=== PATIENT | female | born 1965 | race Caucasian/White ===

== ENCOUNTER 2022-05-21 21:09 | Emergency (ER) | payer OTHER, SELFPAY ==
--- NOTE | ~2022-05-21 | CT_ITS ---
EXAMINATION: CT abdomen pelvis w con DATE: 05/21/2022 22:45 INDICATION: Left lower quadrant abdominal pain. TECHNIQUE: Computed tomography (CT) of the abdomen and pelvis was performed with 100 cc Omnipaque 300 intravenous contrast. The dose-length product was 1506.44 mGy-cm. COMPARISON: None. FINDINGS: Lung bases are unremarkable. Heart size normal. No significant pleural or pericardial effus ion. There are calcified granulomas in the spleen and right lower lung. Fatty infiltration of the robby er. Status post cholecystectomy. The pancreas, adrenal glands and kidneys are unremarkable. There is mild acute uncomplicated proximal sigmoid diverticulitis. Status post hysterectomy. No free air or fr ee fluid. Bladder is unremarkable. Moderate lumbar spondylosis. There is a small fat-containing umbil ical hernia. IMPRESSION: 1. Acute uncomplicated proximal sigmoid diverticulitis. Reviewed, dictated and finalized at location A.
[2022-05-21 21:10] VITALS: BP 133/83; PULSE 76; RESP 17; TEMP 36.3; O2SAT 100
--- NOTE | 2022-05-21 21:32 | ED.ABDPAIN ---
HPI - Abdominal Pain General Chief Complaint: Abdominal Pain Stated Complaint: abd pain Time Seen by Provider: 05/21/22 21:23 Source: patient History of Present Illness HPI narrative: Patient presents with abdominal pain. Symptom present for the past 24 hours thought initially it was gas however pain got progressively worse so she came to the ER for further evaluation. Her pain is primarily on her left lower quadrant achy, constant, and worse with walking around, radiates to her suprapubic area. Symptoms were associated with nausea. She reports some constipation over the past few days but like her bowel movements are normal today she denies any urinary symptoms or fevers. Related Data Home Medications Medication Instructions Recorded Confirmed ergocalciferol (vitamin D2) 1,250 1 cap PO WEEKLY 05/21/22 mcg (50,000 unit) capsule lisinopril 20 1 tablet PO DAILY 05/21/22 mg-hydrochlorothiazide 12.5 mg tablet lorazepam 0.5 mg tablet 0.5 mg PO 05/21/22 omeprazole 20 mg capsule,delayed 20 mg PO PRN 05/21/22 release Allergies Allergy/AdvReac Type Severity Reaction Status Date / Time levofloxacin [From Levaquin] Allergy Chest Pain Verified 05/21/22 23:27 Review of Systems Review of Systems: CONSTITUTIONAL: Denies fever, chills, or sweats. EYES: Denies visual changes, redness, or discharge. ENT: Denies rhinorrhea, congestion, sore throat, or otalgia. CARDIOVASCULAR: Denies chest pain, palpitations, or edema. RESPIRATORY: Denies cough or dyspnea. GASTROINTESTINAL: Denies vomiting, or diarrhea. GENITOURINARY: Denies dysuria or hematuria. SKIN: Denies rash or itching. MUSCULOSKELETAL: Denies back pain, joint pain, or myalgia. NEUROLOGIC: Denies headache, numbness, dizziness, or weakness. PSYCHIATRIC: Denies anxiety or depression. All systems reviewed & are unremarkable except as noted in HPI and below Course Reevaluation(s) Reevaluation #1: Patient resting comfortably results and plan reviewed with patient. Patient is comfortable outpatient plan. Date: 05/22/22 Time: 00:04 Vital Signs Vital signs: Vital Signs Temperature 36.3 C L 05/21/22 21:10 Pulse Rate 76 05/21/22 21:10 Respiratory Rate 17 05/21/22 21:10 Blood Pressure 133/83 05/21/22 21:10 Pulse Oximetry 100 05/21/22 21:10 Oxygen Delivery Room Air 05/21/22 21:10 Temperature 36.3 C L 05/21/22 21:10 Pulse Rate 81 05/21/22 23:27 Respiratory Rate 20 05/21/22 23:27 Blood Pressure 112/54 L 05/21/22 23:27 Pulse Oximetry 98 05/21/22 23:27 Oxygen Delivery Room Air 05/21/22 21:10 MDM - Abdominal Pain MDM Narrative Medical decision making narrative: H&P as above, vss, pt looks clinically well, exam left lower quadrant abdominal pain, labs clinically unremarkable, img concerning for diverticulitis, additional labs/img considered, symptomatic relief available as needed, on reevaluation pt continues to looks clinically well. Suspect diverticulitis, dns perforation, abscess, severe sepsis consider dehydration. plan to tx/monitor as op w/ pcm f/u findings/plan discussed with pt, pt agree/comfortable with plan, return precautions given Lab Data Result diagrams: 05/21/22 21:48 05/21/22 21:48 Labs: Lab Results 05/21/22 05/21/22 05/21/22 Range/Units 21:33 21:41 21:48 WBC 10.2 H (4.5-10.0) K/mm3 RBC 4.50 (4.2-5.4) M/mm3 Hgb 13.1 (12.0-15.0) g/dL Hct 39.8 (37.0-47.0) % MCV 88.4 (80-100) fl MCH 29.1 (26-34) pg MCHC 32.9 (32-36) g/dl RDW 12.3 (11.5-14.5) % Plt Count 329 (150-375) k/mm3 MPV 9.5 (7.4-10.4) fl Immature Gran % (Auto) 0.4 (0-0.5) % Neut % (Auto) 55.5 (45.5-73.1) % Lymph % (Auto) 27.9 (18.3-44.2) % [place] % (Auto) 12.5 H (2.6-8.5) % Eos % (Auto) 2.9 (0-4.4) % Baso % (Auto) 0.8 (0.2-1.2) % Lymph # (Auto) 2.84 (0.9-3.2) K/mm3 [place] # (Auto) 1.3 H (0.1-0.6) K/mm3 Eos # (Auto) 0.3 (0-0.3) K
[2022-05-21 21:39] LABS: Glucose Point of Care 119 mg/dl (65-105)
[2022-05-21 21:47] LABS: Appearance Urine Clear (Clear); Bilirubin Urine Negative (Negative); Blood Urine Negative (Negative); Glucose Urine UA Negative (Negative); Ketones Urine Negative (Negative); Leukocyte Esterase Ur 2+ LEU/UL (Negative); Nitrate Urine Negative (Negative); Protein Urine Negative (Negative); Specific Grav Ur <= 1.005 (1.001-1.035); Urobilinogen Urine 0.2 mg/dL (<2.0); pH Urine 6.5 (5.0-9.0)
[2022-05-21 21:51] LABS: Bacteria Urine Trace /hpf; Mucus Urine Rare /lpf; RBC Urine 0-2 /hpf (0-2); Squamous Epithelial Cell Urine Rare /hpf (Few)
[2022-05-21 21:52] LABS: Add Urine Microscopic? YES; Color Urine Light Yellow (Yellow)
[2022-05-21 21:54] VITALS: PULSE 84; RESP 21; O2SAT 97
[2022-05-21 22:00] VITALS: PULSE 84; RESP 22; O2SAT 98
[2022-05-21 22:00] LABS: Basophils Absolute Auto 0.1 K/mm3 (0.0-0.1); Basophils Percent Auto 0.8 % (0.2-1.2); Eosinophils Absolute Auto 0.3 K/mm3 (0-0.3); Eosinophils Percent Auto 2.9 % (0-4.4); Hematocrit 39.8 % (37.0-47.0); Hemoglobin 13.1 g/dL (12.0-15.0); Immature Granulocyte Absolute 0.04 K/mm3 (0.00-0.031); Immature Granulocyte Percent A 0.4 % (0-0.5); Lymphocytes Absolute Auto 2.84 K/mm3 (0.9-3.2); Lymphocytes Percent Auto 27.9 % (18.3-44.2); Mean Corpuscular HGB Conc 32.9 g/dl (32-36); Mean Corpuscular Hemoglobin 29.1 pg (26-34); Mean Corpuscular Volume 88.4 fl (80-100); Mean Platelet Volume 9.5 fl (7.4-10.4); Monocytes Absolute Auto 1.3 K/mm3 (0.1-0.6); Monocytes Percent Auto 12.5 % (2.6-8.5); Neutrophils Absolute Auto 5.6 K/mm3 (1.3-6.7); Neutrophils Percent Auto 55.5 % (45.5-73.1); Platelet Count Result 329 k/mm3 (150-375); Red Cell Distribution Width 12.3 % (11.5-14.5); White Blood Count 10.2 K/mm3 (4.5-10.0)
[2022-05-21] MEDS: SODIUM CHLORIDE 0.9% IV 1,000 ML 999 ML IV CONT (22:02)
[2022-05-21 22:09] LABS: Alanine Aminotransferase 25 U/L (6-35); Albumin Level 4.6 g/dL (3.5-5.1); Alkaline Phosphatase 138 U/L (38-126); Anion Gap 5 mmol/L (8-16); Aspartate Amino Transferase 23 U/L (14-36); Bilirubin,Total 0.2 mg/dL (0.2-1.3); Blood Urea Nitrogen 13 mg/dL (7-17); Calcium 10.6 mg/dL (8.4-10.2); Carbon Dioxide 28 mmol/L (22-30); Chloride 101 mmol/L (98-107); Estimated CRCL calculation 108 ml/min; Estimated Glomerular Filt Rate > 60; Glucose 109 mg/dL (65-110); Lipase 81 U/L (23-300); Sodium 134 mmol/L (137-145)
[2022-05-21 22:15] VITALS: PULSE 75; RESP 18; O2SAT 98
[2022-05-21 22:52] VITALS: PULSE 74; RESP 14; O2SAT 99
[2022-05-21 23:27] VITALS: BP 112/54; PULSE 81; RESP 20; O2SAT 98
[2022-05-22] MEDS: AMOXICILLIN/CLAVULANATE K 875-125 MG TAB 1 TABLET PO (00:13)
== END 2022-05-22 00:22 | disposition home or self-care (01) ==
PROVIDERS: Emergency Provider Emergency Medicine; PCP Internal Medicine
DX: K57.32 Diverticulitis of large intestine without perforation or abscess without bleeding (principal)
CPT/HCPCS: 36415; 74177; 80053; 81001; 82948; 83690; 85025; 87086; 87088; 96360; 96361; 99284; A9270; J7030; Q9967

== ENCOUNTER 2025-09-24 11:53 | Emergency (ER) | payer OTHER, SELFPAY ==
--- OUTSIDE RECORDS SUMMARY | 2002-02-05 03:45 | XMS_ITS | Continuity of Care Document ---
Author Organization [facility] Address [address] [place] [address] Phone Care Team Providers Care Gym Manager Name Role Phone Yamil Marie DO Unavailable Unavailable Advance Directives Directive Yes / No Effective Date File Name No Information Encounters Encounter Description Practice Location Reason(s) For Visit Diagnoses Date Provider Providers Copied on Encounter [facility], [address], [place], [place], [id number], [place] tel:[phone] [facility] No Information Cynthia Ventura. [address] [facility], [place], [address], [place]. tel:[phone] Family History Family Member Type Diagnosis Age At Onset No Information Payers Payer name Insurance type Covered democrat ID Authoriza tion(s) No Information Social History Type Description Quantity Date Captured Comments Sex Female Smoking Status No Information Chief Complaint And Reason For Visit No Information Reason For Referral Reason For Referral No Information History Of Present Illness Encounter Date Complaint History Of Prese nt Illness No Information Functional Status Date Functional Assessmen t No Information Instructions Date Instruction Additional Infor mation No Information Assessments Type Assessment Date No Information Patient Care Teams Name Effective Dates (start - stop) Status Members No Information
--- OUTSIDE RECORDS SUMMARY | 2002-02-05 03:45 | XMS_ITS | Continuity of Care Document ---
Author Organization formerly [facility] Address [address] [place] [address] Phone Care Team Providers Care Natural Resources Manager Name Role Phone Yamil Marie DO Unavailable Unavailable Advance Directives Directive Yes / No Effective Date File Name No Information Encounters Encounter Description Practice Location Reason(s) For Visit Diagnoses Date Provider Providers Copied on Encounter [facility], [address], [place], [place], [id number], [place] tel:[phone] [facility] No Information Cynthia Ventura. [address] [facility], [place], [address], [place]. tel:[phone] Family History Family Member Type Diagnosis Age [...]
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
--- NOTE | ~2025-09-24 | XR_ITS ---
XR ankle RT min 3V INDICATION: trauma . COMPARISON: None. FINDINGS: Frontal, lateral and oblique views of the right ankle demonstrate no acute fracture or dislocation. The ankle mortise is intact. There is no soft tissue swelling. No radiopaque foreign body is seen. Degenerative plantar calcaneal spurs are noted. IMPRESSION: No acute fracture or dislocation is noted in the right ankle. Reviewed, dictated and finalized at location S. RATOR OPERATOR
--- NOTE | ~2025-09-24 | XR_ITS ---
XR lumbar spine 2-3V INDICATION: Back pain COMPARISON: None. TECHNIQUE: AP and lateral views of the lumbar spine as well as coned-down views of L5-S1 were obtained. FINDINGS: There is no compression fracture or malalignment. Moderate degenerative disc disease with disc space narrowing and endplate sclerosis particularly phoned L3-L4 through L5-S1. There is resulting encroachment on the neural foramen. No soft tissue abnormalities are identified. IMPRESSION: No acute compression fracture or spondylolysis. Reviewed, dictated and finalized at location S. AL LOGISTICS MANAGER
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
[2025-09-24 11:57] VITALS: BP 134/76; PULSE 99; RESP 20; TEMP 36.6; O2SAT 100
--- OUTSIDE RECORDS SUMMARY | 2025-09-24 13:18 | XMS_ITS | Clinical Summary ---
Author Organization [facility] [address] Address [address] [place] [address] Care Team Providers Care Windows Software Engineer Name Role Phone Andrea Castro MD Primary Care Provider [phone] Allergies Active Allergy Reactions Criticality Noted Date Comments Levofloxacin Chest tightness Medium 02/04/2021 Medications acetaminophen (TYLENOL) 325 mg tablet Take 2 tablets (650 mg total) by mouth every 6 (six) hours as needed for pain Active loratadine (CLARITIN) 10 mg tabletIndicatio ns:Allergic Rhinitis Take 1 tablet (10 mg total) by mouth as needed for allergies Active guaiFENesin ER (MUCINEX) 600 mg 12 hr tablet Take 2 tablets (1,200 mg total) by mouth as needed for cough Active docusate sodium (COLACE) 100 mg capsuleIndicati ons:constipatio n Take 1 capsule (100 mg total) by mouth 2 (two) times a day as needed for constipation Stop for loose stools. 30 capsule 2 Active calcium carbonate/vitam in D3 (CALCIUM 500 + D, D3, ORAL) Take by mouth daily Active aspirin 81 mg enteric coated tablet Take 1 tablet (81 mg total) by mouth daily Active rosuvastatin (CRESTOR) 10 mg tablet Take 1 tablet by mouth once daily 90 tablet 2 4 Active Additional Information Patient not taking.Reported on 05/23/2025 LORazepam (ATIVAN) 1 mg tablet Take 0.5 tablets (0.5 mg total) by mouth every 8 (eight) hours as needed for anxiety 15 tablet 4 Active predniSONE (DELTASONE) 10 mg tablet Take 5 tabs (50mg) daily for 2 days, then take 4 tabs (40mg) daily for 2 days. Continue to decrease by 1 tab (10mg) every 2 days until gone. 30 tablet 5 Active Additional Information Patient not taking.Reported on 05/23/2025 albuterol HFA (PROVENTIL HFA,VENTOLIN HFA,PROAIR HFA) 90 mcg/actuation inhaler Inhale 2 puffs every 6 (six) hours as needed for wheezing or shortness of breath 1 each 5 Active Additional Information Patient not taking.Reported on 05/23/2025 omeprazole (PriLOSEC) 20 mg capsule TAKE 1 CAPSULE BY MOUTH EVERY DAY 90 capsule 1 5 Active Synthroid 150 mcg tablet TAKE 1 TABLET BY MOUTH EVERY DAY IN SHEEP FARMER BEFORE BREAKFAST 90 tablet 1 5 Active lisinopril-hydr oCHLOROthiazide (ZESTORETIC) 20-12.5 mg per tablet Take 1 tablet by mouth once daily 90 tablet 5 Active Active Problems Problem Noted Date Diagnosed Date Encounter for screening colonoscopy 01/17/2024 Papillary thyroid carcinoma 12/07/2022 Overview (06/19/2023): S/P TT and MONTOYA Assessment & Plan (03/25/2025 2:56 PM CDT): Status post total thyroidectomy and parathyroidectomy on 11/01/2022. Final pathology is remarkable for papillary thyroid carcinoma (classical type, 1.4 cm in in right lobe, pT3b pN0a), hypercellular left lower parathyroid gland, and no evidence of malignancy in 5 lymph nodes. Of note, the ThyroSeq molecular analysis revealed BRAF and TERT mutations. S/P MONTOYA 100 mCi Biochemical testing are reassuring with no evidence of tumor recurrence Neck US reported left level 2 LN that has concerning features FNA was benign Follow up US remain stable Scheduled follow up US in Jul Tumor markers remain undetected Assessment & Plan (06/21/2023 5:40 AM CDT): Status post total thyroidectomy and parathyroidectomy on 11/01/2022. Final pathology is remarkable for papillary thyroid carcinoma (classical type, 1.4 cm in in right lobe, pT3b pN0a), hypercellular left lower parathyroid gland, and no evidence of malignancy in 5 lymph nodes. Of note, the ThyroSeq molecular analysis revealed BRAF and TERT mutations. S/P MONTOYA 100 mCi Biochemical testing are reassuring with no evidence of tumor recurrence Neck US reported left level 2 LN that has concerning features This LN was seen on US LN mapping and remain stable We will review with Dr. Durham and discuss FNA with Tg Wash out of this LN [similar LN on right side was seen on surgery and removed , this was benign] If Cytology benign---> follow up in 1 year IF Cytology +ve --> will see earlier and discuss plan Assessment & Plan (12/07/2022 12:10 PM BOTTLING MACHINE OPERATOR): Status post total thyroidectomy and parathyroidectomy on 11/01/2022. Final pathology is remarkable for papillary thyroid carcinoma (classical type, 1.4 cm in in right lobe, pT3b pN0a), hypercellular left lower parathyroid gland, and no evidence of malignancy in 5 lymph nodes. Of note, the ThyroSeq molecular analysis revealed BRAF and TERT mutations. Given above pathology and genetic alteration, we recommend that she receives MONTOYA therapy and TBS Patient is in agreement We reviewed process, side effects, short and petroleum terminal plant operator follow up including labs and images Patient questions all answered and encouraged to call if any additional questions or concerns Follow up in 6 m Post-surgical hypothyroidism 12/07/2022 Assessment & Plan (03/25/2025 2:54 PM CDT): Continue current levothyroxine dose. Assessment & Plan (06/19/2023 11:02 AM CDT): Continue current levothyroxine dose. Assessment & Plan (12/07/2022 12:07 PM BOTTLING MACHINE OPERATOR): Continue current levothyroxine dose. Will check thyroid function test 2 months after MONTOYA therapy to make dose adjustments if needed TSH goal < 0.5 Primary hyperparathyroidism 10/04/2022 Assessment & Plan (03/25/2025 2:59 PM CDT): S/p surgical resection Monitor calcium level Assessment & Plan (06/19/2023 11:02 AM CDT): S/p surgical resection Monitor calcium level Assessment & Plan (12/07/2022 12:07 PM BOTTLING MACHINE OPERATOR): S/p surgical resection Monitor calcium level Diverticulitis 06/28/2022 Prediabetes 12/09/2021 Assessment & Plan (12/09/2021 11:10 AM BOTTLING MACHINE OPERATOR): A1C 5.9% Diet and activity addressed Trial Trulicity 1.5mg weekly (use, s/e and samples x 2 given) discount card given. Do not suspect this will need to be continued but will be a nice boost for her Colon cancer screening 12/09/2021 Assessment & Plan (12/09/2021 11:10 AM BOTTLING MACHINE OPERATOR): Colonoscopy referral Essential hypertension 12/09/2021 Assessment & Plan (12/09/2021 11:11 AM BOTTLING MACHINE OPERATOR): Continue current Labs today Gastroesophageal reflux disease 12/09/2021 Assessment & Plan (12/09/2021 11:14 AM BOTTLING MACHINE OPERATOR): Trial omeprazole 20mg daily x 4-6 weeks then taper off Limit eating/drinking within 2 hours of laying down Limit carbonation and caffeine If no improvement EGD Encounters Date Type Department Care Team Description 08/01/2025 Telephone [facility] Medicine Surgery [facility] Floor [address] [place] [address] Flavia Maharaj CMA from Last 3 Months Immunizations Immunization Administration Dates Next Due Pursway ([employer]) SARS-CoV-2 Vaccination 01/17/2021 Surgical History Surgery Date Site/Laterality Comments HYSTERECTOMY 11/13/2006 - 11/12/2007 CHOLECYSTECTOMY 11/13/1994 - 11/12/1995 BLADDER SUSPENSION 11/13/1994 - 11/12/1995 SECTION PARATHYROID GLAND SURGERY 10/2022 THYROID SURGERY 10/2022 Medical History Medical History Date Comments Hypertension Anxiety PONV (postoperative nausea and vomiting) reports PONV following hysterectomy, section, cholecystectomy. Has never had a scop patch, unsure what she was given. Vitamin D deficiency 11/2021 Polycystic ovary syndrome 2001 Thyroid cancer (HCC) 10/2022 Family History Medical History Relation Name Comments Cancer Brother 1 Johnson Cancer Brother 2 Ramesh Cancer Father Mario Diabetes Father Mario Hypertension Father Mario Kidney disease Father Mario Cancer Mother Liz Heart disease Mother Liz Hyperlipidemia Mother Liz Hypertension Mother Liz Thyroid disease Mother Liz Anesthesia problems Neg Hx Relation Name Status Comments Brother 1 Johnson Brother 2 Ramesh Father Mario Mother Liz Social History Tobacco Use Types Packs/Day Years Used Date Smoking Tobacco: Never Smokeless Tobacco: Never Tobacco Cessation:Counseling Given: Not Answered AUDIT-C Answer Date Recorded Q1: How often do you have a drink containing alcohol? Never 11/01/2022 Q2: How many drinks containi ng alcohol do you have on a typical day when you are drinking? Patient does not drink Q3: How often do you have si x or more drinks on one occasion? Never 11/01/2022 PHQ-2 Answer Date Recorded PHQ-2 Total Score (If total score is 3 or more points, staff should administer the PHQ-9) 0 04/09/2025 Personal Safety Answer Date Recorded Getting School Help Needed Denies 10/25 Comments Unknown Sex and Gender Information Value Date Recorded Sex Assigned at Not on file Legal Sex Female 2:20 PM BOTTLING MACHINE OPERATOR Gender Identity Not on file Sexual Orientation Not on file Last Filed Vital Signs Vital Sign Reading Time Taken Comments Blood Pressure 128/76 05/23/2025 6:09 PM CDT Pulse 87 05/23/2025 6:09 PM CDT Temperature 36.8 C (98.2 F) 05/23/2025 6:09 PM CDT Respiratory Rate 20 05/23/2025 6:09 PM CDT Oxygen Saturation 99% 05/23/2025 6:09 PM CDT Inhaled Oxygen Concentration - - Weight 105.7 kg (233 lb) 05/23/2025 6:09 PM CDT Height 165.1 cm (5' 5) 04/09/2025 8:00 AM CDT Body Mass Index 38.77 04/09/2025 8:00 AM CDT Plan of Treatment Scheduled Procedures Name Priority Associated Diagnoses Date/Ti nc COLONOSCOPY Open Access Encounter for screening colonoscopy COLONOSCOPY Open Access Encounter for screening colonoscopy ESOPHAGOGASTRODUODENOSCOPY Gastroesophageal reflux disease, unspecified whether esophagitis present COLONOSCOPY Encounter for screening colonoscopy COLONOSCOPY Colon cancer screening COLONOSCOPY Encounter for screening colonoscopy Health Maintenance Due Date Last Done Comments Colon Cancer Screening-Colonoscopy 1966 Hepatitis C Screening 1966 DTaP/Tdap/Td Vaccine (1 - Tdap) 1977 Hepatitis B Screening 1984 Zoster Vaccine (1 of 2) 2016 Breast Cancer Screening-Mammogram 06/23/2024 06/23/2023 Covid-19 Vaccine (2 - 2024-2 6 season) 2025 01/17/2021 Influenza Vaccine (#1) 2025 Depression Screening 04/09/2026 04/09/2025 Regular Well Visit/Exam 18-64 04/09/2026, 01/17/2024, 02/04/2021 Pneumococcal vaccine <65 Aged Out No longer eligible based on patient's age to complete this topic Procedures Procedure Name Priority Date/Time Associated Diagnosis Comments SCREENING MAMMOGRAM BILATERAL W EYAL Schedule Routine, Read Routine (OP Routine) 06/23/2023 10:27 AM CDT Screening mammogram, encounter for from Last 3 Months or Most Recently Relevant to Health Maintenance Results * Screening Mammogram Bilateral W Eyal (06/23/2023 10:27 AM CDT) Anatomical Region Laterality Modality Breast Bilateral Mammography Narrative 06/26/2023 1:29 PM CDT Mammogram Technique: Bilateral Digital Breast Tomosynthesis, Bilateral C-view 2D Screening mammogram. Views obtained: bilateral craniocaudal and bilateral mediolateral oblique. Computer Aided Detection was performed. Mammogram Findings: This is a baseline study. The breasts are almost entirely fatty. There is no suspicious abnormality in either breast. Impression: There is no mammographic evidence of malignancy. Annual screening mammography is recommended. OVERALL FINAL ASSESSMENT: BI-RADS CATEGORY 1: Negative. Procedure Note Lurdes Nichols MD - 06/26/2023 Mammogram Technique: Bilateral Digital Breast Tomosynthesis, Bilateral C-view 2D Screening mammogram. Views obtained: bilateral craniocaudal and bilateral mediolateral oblique. Computer Aided Detection was performed. Mammogram Findings: This is a baseline study. The breasts are almost entirely fatty. There is no suspicious abnormality in either breast. Impression: There is no mammographic evidence of malignancy. Annual screening mammography is recommended. OVERALL FINAL ASSESSMENT: BI-RADS CATEGORY 1: Negative. us Self Screening Mammogram IMG MAMMO PROCEDURES Fi nal Result from Last 3 Months or Most Recently Relevant to Health Maintenance Insurance [employer] OOS Advance Directives For more information, please contact: [phone] * Full Code (Latest Code Status on File) Date Activated Date Inactivated Comments 11/01/2022 12:52 PM 11/02/2022 3:13 PM Care Teams Windows Software Engineer Relationship Specialty Start Date End Date Andrea Castro MD PCP - General Internal Medicine 01/13/21
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
--- OUTSIDE RECORDS SUMMARY | 2025-09-24 16:20 | XMS_ITS | Clinical Summary ---
Author Organization [facility] [id number] [place] [address] Care Team Providers Care Partition Assembly Machine Operator Name Role Phone Andrea Castro MD Primary Care Provider [phone] Allergies Active Allergy Reactions Criticality Noted Date [...] 1 TABLET BY MOUTH EVERY DAY IN HOTEL OPERATION MANAGER BEFORE BREAKFAST 90 tablet 1 5 Active [...] plan Assessment & Plan (12/07/2022 12:10 PM SSN/SSBN WEAPONS EQUIPMENT OPERATOR): Status post total thyroidectomy and parathyroidectomy [...] We reviewed process, side effects, short and sports clerk follow up including labs and images Patient questions all answered and encouraged to call if any additional questions or concerns Follow up in 6 m Post-surgical hypothyroidism 12/07/2022 Assessment & Plan (03/25/2025 2:54 PM CDT): Continue current levothyroxine dose. Assessment & Plan (06/19/2023 11:02 AM CDT): Continue current levothyroxine dose. Assessment & Plan (12/07/2022 12:07 PM SSN/SSBN WEAPONS EQUIPMENT OPERATOR): Continue current levothyroxine dose. Will check thyroid function test 2 months after MONTOYA therapy to make dose adjustments if needed TSH goal < 0.5 Primary hyperparathyroidism 10/04/2022 Assessment & Plan (03/25/2025 2:59 PM CDT): S/p surgical resection Monitor calcium level Assessment & Plan (06/19/2023 11:02 AM CDT): S/p surgical resection Monitor calcium level Assessment & Plan (12/07/2022 12:07 PM SSN/SSBN WEAPONS EQUIPMENT OPERATOR): S/p surgical resection Monitor calcium level Diverticulitis 06/28/2022 Prediabetes 12/09/2021 Assessment & Plan (12/09/2021 11:10 AM SSN/SSBN WEAPONS EQUIPMENT OPERATOR): A1C 5.9% Diet and activity addressed Trial Trulicity 1.5mg weekly (use, s/e and samples x 2 given) discount card given. Do not suspect this will need to be continued but will be a nice boost for her Colon cancer screening 12/09/2021 Assessment & Plan (12/09/2021 11:10 AM SSN/SSBN WEAPONS EQUIPMENT OPERATOR): Colonoscopy referral Essential hypertension 12/09/2021 Assessment & Plan (12/09/2021 11:11 AM SSN/SSBN WEAPONS EQUIPMENT OPERATOR): Continue current Labs today Gastroesophageal reflux disease 12/09/2021 Assessment & Plan (12/09/2021 11:14 AM SSN/SSBN WEAPONS EQUIPMENT OPERATOR): Trial omeprazole 20mg daily x 4-6 weeks then taper off Limit eating/drinking within 2 hours of laying down Limit carbonation and caffeine If no improvement EGD Encounters Date Type Department Care Team Description 08/01/2025 Telephone [facility] Medicine Surgery [facility] [place] [address] Flavia Maharaj CMA from Last 3 Months Immunizations Immunization Administration Dates Next Due [employer] ([employer]) SARS-CoV-2 Vaccination 01/17/2021 Surgical History Surgery [...] on file Legal Sex Female 2:20 PM SSN/SSBN WEAPONS EQUIPMENT OPERATOR Gender Identity Not on file Sexual [...] Scheduled Procedures Name Priority Associated Diagnoses Date/Ti or COLONOSCOPY Open Access Encounter for screening colonoscopy [...] Most Recently Relevant to Health Maintenance Insurance [employer] OOS Advance Directives For more information, please contact: [phone] * Full Code (Latest Code Status on File) Date Activated Date Inactivated Comments 11/01/2022 12:52 PM 11/02/2022 3:13 PM Care Teams Partition Assembly Machine Operator Relationship Specialty Start Date End Date Andrea Castro MD PCP - General Internal Medicine 01/13/21
== END 2025-09-24 16:44 | disposition home or self-care (01) ==
PROVIDERS: Emergency Provider Emergency Medicine; PCP Internal Medicine
DX: R07.89 Other chest pain (principal); M25.571 Pain in right ankle and joints of right foot; M25.561 Pain in right knee; M25.531 Pain in right wrist; M79.604 Pain in right leg; V89.2XXA Person injured in unspecified motor-vehicle accident, traffic, initial encounter; W22.10XA Striking against or struck by unspecified automobile airbag, initial encounter
CPT/HCPCS: 71046; 72100; 73110; 73562; 73590; 73610; 99284